=== PATIENT | female | born 1980 | race Caucasian/White ===

== ENCOUNTER 2019-07-27 17:14 | Emergency (ER) | payer MEDICAID ==
[~2019-07-27] VITALS: Ht 157.5 cm; Wt 64.0 kg
[2019-07-27 17:21] VITALS: BP 130/108
--- NOTE | 2019-07-27 17:46 | NUR ---
PLACED SLING ON PT
[2019-07-27 17:50] VITALS: BP 124/94
== END 2019-07-27 17:50 | disposition home or self-care (01) ==
LOC: MED 17:14
DX: S49.81XA Other specified injuries of right shoulder and upper arm, initial encounter (principal); F17.210 Nicotine dependence, cigarettes, uncomplicated; Z98.890 Other specified postprocedural states; W18.30XA Fall on same level, unspecified, initial encounter; Y93.89 Activity, other specified; Y92.89 Other specified places as the place of occurrence of the external cause; Y99.8 Other external cause status
CPT/HCPCS: 73030; 99283; Q0092